=== PATIENT | male | born 1945 | race Caucasian/White ===

== ENCOUNTER 2020-02-01 08:13 | Outpatient (CLI) | payer MEDICARE, SELFPAY ==
--- NOTE | 2020-02-01 08:45 | XRR_ITS ---
PROCEDURE INFORMATION: Exam: XR Abdomen, 1 View Exam date and time: 02/01/2020 8:38 AM Age: 74 years old Clinical indication: Condition or disease; Kidney or ureter condition; Calculus (stone) in kidney; Additional info: Kidney stone TECHNIQUE: Imaging protocol: XR of the abdomen. Views: Frontal supine view of the abdomen. 1 View. COMPARISON: CR XR KUB [id number] 01/22/2019 7:36 AM FINDINGS: Gastrointestinal tract: No dilated gas-filled loops of bowel. Organs: No radiopaque renal or ureteral calculus identified. Vasculature: Multiple phleboliths in the pelvis. Bones/joints: Slight curvature of the lumbar spine convex to the right. Degenerative changes present in the lower lumbar spine. Soft tissues: Epicardial pacemaking wire fragment projects over the epigastrium. XR/XR KUB [id number] IMPRESSION: No radiopaque renal or ureteral calculus.
== END 2020-02-01 08:14 | disposition home or self-care (01) ==
LOC: RAD 08:18
PROVIDERS: PCP Family Medicine; Visit Provider Urology
DX: N20.0 Calculus of kidney (principal)
CPT/HCPCS: 74018; 81001

== ENCOUNTER → 2020-10-27 11:02 | Outpatient (BNVA) | payer MEDICARE, SELFPAY | PROVIDERS: PCP Family Medicine; Visit Provider Nurse Practitioner | DX: M12.262 Villonodular synovitis (pigmented), left knee (principal) | CPT/HCPCS: 73562 ==

== ENCOUNTER → 2020-11-08 10:56 | Outpatient (BNVA) | payer MEDICARE, SELFPAY | PROVIDERS: PCP Family Medicine; Visit Provider Family Medicine | DX: E78.00 Pure hypercholesterolemia, unspecified (principal); E78.5 Hyperlipidemia, unspecified; N40.0 Benign prostatic hyperplasia without lower urinary tract symptoms; R35.0 Frequency of micturition; N40.1 Benign prostatic hyperplasia with lower urinary tract symptoms; R39.12 Poor urinary stream; I10 Essential (primary) hypertension | CPT/HCPCS: 80053; 80061; 81000; 85025; G0103 ==

== ENCOUNTER 2021-03-13 08:47 | Outpatient (CLI) | payer MEDICARE, SELFPAY ==
[2021-03-13 09:01] VITALS: BMI 24.4
--- NOTE | 2021-03-13 09:08 | ECG_ITS ---
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 Interpretive Statements NAME OF STUDY: EXERCISE SESTAMIBI STRESS TEST INDICATION: Chest Pain, PROCEDURE: The baseline electrocardiogram showed [normal sinus rhythm with poor R wave progression. 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 Nonspecific ST-T changes in the high lateral leads.. At the baseline, the patient's blood pressure was 118/71 mm Hg with a heart rate of 99. The patient exercised for on a standard Douglas protocol. Patient attained a maximum heart rate of 141 beats per minute( 96 % of the maximum predicted heart rate) with a blood pressure at the peak exercise of 139/55 mm Hg. The EKG at the peak exercise revealed no significant changes. Patient did not have any chest pain or any significant arrhythmis with the exercise Sestamibi was injected 1 minute prior to the peak exercise During the recovery phase, there were no new changes. Blood pressure at the end of the recovery phase was 126/69 mm Hg with a heart rate of 92 per minute. CONCLUSION: 1. No significant EKG changes with the [treadmill exercise 2. No exercise-induced chest pain or cardiac arrhythmia 3. Slightly impaired exercise tolerance, attained a maximum of 7.0 METs 4. Sestamibi/Sestamibi perfusion results pending; see separate report. Electronically Signed On 03-22-2021 10:06:25 HOME SPECIALIST by Grecia Kearney M.D. [id number]
--- NOTE | 2021-03-13 09:08 | NMCV_ITS ---
NM kendra perf SPECT r/s* [id number] Manoj Ingram Age: 75 Gender: M : 1945 Exam Date: 03/13/2021 10:02 Ordering Phys: Grecia Kearney MD ([email or web address]) Technologist: FRIDA Garza Exam [facility]: [facility] Indications: SHORTNESS OF BREATH STRESS TEST Please see separate stress test report in [facility] for full findings IMAGE PROTOCOL Rest/Stress 1 Exercise Day Radiopharmaceutical Dose (mCi) Administration Site Administered by Rest: Tc-99m 11.0 IV FRIDA Alonso Sestamibi Stress:Tc-99m 32.4 IV FRIDA Alonso Sestamibi Rest: 13-Mar-2021 60 Discovery 630 Stress: 13-Mar-2021 30 Discovery 630 Radiopharmaceutical was injected at 96 % maximum heart rate. Supine position only as patient was unable to lay prone. SPECT RESULTS Technical Quality: Excellent Raw Data Analysis: Normal Image Corrections: No attenuation or motion correction applied Summed Stress Score: 24 Summed Rest Score: 20 Summed Difference Score: 4 PERFUSION FINDINGS Moderately large area of moderate to severely decreased tracer uptake in the mid and apical anterior, mid anterolateral, basal and mid anteroseptal, mid inferoseptal and the all the apical segments. Several areas of reversibility was noted in the mid anterolateral, basal anteroseptal and the LV apex. FUNCTIONAL RESULTS (calculated via Gated SPECT) Stress Image LV EF (%): 39 Stress EDV (mL):96 TID: 0.97 Stress ESV (mL):59 FUNCTIONAL FINDINGS: Segmental wall motion analysis revealing severe diffuse hypokinesia of the LV apex, anterior wall and septum. IMPRESSIONS 1. Metacarpal visually revealing areas of fixed defects in the distribution of the left anterior descending and circumflex artery with small areas of reversible defect in the anteroseptal, anterolateral and LV apex suggesting irene-infarction ischemia. 2. Wall motion abnormalities as mentioned above. 3. LV ejection fraction estimated to be 39%. 4. Mildly dilated LV cavity with an end-systolic volume of 59 ml No similar previous studies are available for comparison Dr Grecia Kearney MD [facility] (Electronically Signed) Final Date: 13 March 2021 18:45 S
[2021-03-13 11:55] VITALS: BP 126/69; PULSE 94
== END 2021-03-13 08:48 | disposition home or self-care (01) ==
PROVIDERS: PCP Family Medicine; Visit Provider Internal Medicine Cardiovascular Disease
DX: R07.89 Other chest pain (principal); R06.09 Other forms of dyspnea
CPT/HCPCS: 78452; 93017; A9500

== ENCOUNTER 2021-07-31 07:53 | Outpatient (CLI) | payer MEDICARE, SELFPAY ==
--- NOTE | 2021-07-31 08:15 | XR_ITS ---
WS: [id number] KUB, AP view, 07/31/2021 Clinical Data: urolithiasis Comparison: None. Findings: No abnormal intraabdominal masses or calcifications are seen. There is no dilatated small bowel or ev idence of obstruction. There is fecal material throughout the colon. There are phleboliths in the true pelvis. There are wir e fragments overlying the upper abdomen. There is a slight dextroscoliosis of the lumbar spine. XR/XR KUB [id number] Impression: Fecal material throughout colon.
== END 2021-07-31 07:54 | disposition home or self-care (01) ==
LOC: RAD 07:57
PROVIDERS: PCP Family Medicine; Visit Provider Urology
DX: N20.9 Urinary calculus, unspecified (principal)
CPT/HCPCS: 74018; 81003

== ENCOUNTER → 2021-08-09 09:36 | Outpatient (BNVA) | payer MEDICARE, SELFPAY | PROVIDERS: PCP Family Medicine; Visit Provider Internal Medicine Cardiovascular Disease | DX: R06.02 Shortness of breath (principal); I20.8 Other forms of angina pectoris; R07.9 Chest pain, unspecified; I25.118 Atherosclerotic heart disease of native coronary artery with other forms of angina pectoris; E78.00 Pure hypercholesterolemia, unspecified; I12.9 Hypertensive chronic kidney disease with stage 1 through stage 4 chronic kidney disease, or unspecified chronic kidney disease; I25.5 Ischemic cardiomyopathy; I50.33 Acute on chronic diastolic (congestive) heart failure; N18.30 Chronic kidney disease, stage 3 unspecified; N40.1 Benign prostatic hyperplasia with lower urinary tract symptoms; R06.00 Dyspnea, unspecified | CPT/HCPCS: 80048; 83880; 99214 ==

== ENCOUNTER 2021-10-03 12:19 | Outpatient (CLI) | payer MEDICARE, SELFPAY ==
--- NOTE | 2021-10-03 12:15 | USCV_ITS ---
Manoj Ingram Age: 76 Gender: M : 1945 Exam Date: 10/03/2021 12:36 Ordering Phys: Grecia Kearney MD ([email or web address]) Technologist: Exam Location: [facility] [place] Indication: cabg BP: 100 / 68 HR: 66 Rhythm: Sinus Technical Quality: Adequate MEASUREMENTS (Male / Female) Normal Values 2D ECHO LV Diastolic Diameter PLAX 4.3 cm 4.2 - 5.9 / 3.9 - 5.3 cm LV Systolic Diameter PLAX 3.1 cm IVS Diastolic Thickness 0.9 cm 0.6 - 1.0 / 0.6 - 0.9 cm IVS Systolic Thickness 0.9 cm LVPW Diastolic Thickness 1.0 cm 0.6 - 1.0 / 0.6 - 0.9 cm LVPW Systolic Thickness 1.1 cm LVOT Diameter 2.1 cm LV Ejection Fraction 2D Teich 54.8 % LA Diameter 3.4 cm Aorta at Sinotubular Diameter 2.9 cm IVC Diameter 1.1 cm M-MODE LV Diastolic Diameter MM 0.8 cm 4.2 - 5.9 / 3.9 - 5.3 cm LV Systolic Diameter MM 3.7 cm LV Ejection Fraction MM Teich -4812.4 % IVS Diastolic Thickness MM 0.0 cm 0.6 - 1.0 / 0.6 - 0.9 cm IVS Systolic Thickness MM 1.1 cm LVPW Diastolic Thickness MM 5.1 cm 0.6 - 1.0 / 0.6 - 0.9 cm LVPW Systolic Thickness MM 1.5 cm RV Diastolic Diameter MM 1.4 cm Aortic Annulus Diameter 3.1 cm LA Ao Ratio MM 1.2 MV E Point Septal Separation 1.1 cm DOPPLER AV Peak Velocity 109.0 cm/s LVOT Peak Velocity 132.0 cm/s AV Area Cont Eq vti 4.6 cm squared AV Area Cont Eq pk 4.2 cm squared MV Area PHT 4.9 cm squared Mitral E to A Ratio 0.7 MV E' Velocity 29.0 cm/s Mitral E to MV E' Ratio 7.8 Mitral E to LV E' Lateral Ratio 8.9 Mitral E to LV E' Septal Ratio 7.0 TR Peak Velocity 223.0 cm/s TR Peak Gradient 19.9 mmHg TV Peak E Velocity 78.0 cm/s Right Atrial Pressure 3.0 mmHg Pulmonary Artery Systolic Pressu 22.9 mmHg FINDINGS Left Ventricle Moderate hypokinesis of the mid and apical septum and anteroseptal segments. Diffuse hypokinesia of the LV apex. LV ejection fraction around 45 to 50%.Grade I/IV diastolic dysfunction (abnormal relaxation filling pattern), normal to mildly elevated filling pressures. Right Ventricle The right ventricle is normal in size and function. Right Atrium The right atrium is normal in size. Left Atrium The left atrium is normal in size. Mitral Valve No gross abnormalities noted Aortic Valve No gross abnormalities noted Tricuspid Valve Trace tricuspid valve regurgitation. Pulmonic Valve No gross abnormalities noted Pericardium Normal pericardium without effusion. Aorta Normal ascending aorta dimension. IVC The inferior vena cava pulmonary and hepatic veins appear normal. CONCLUSIONS Multiple wall motion normalities with additional ejection fraction of 45 to 50%. Type I diastolic dysfunction. Trace tricuspid valve regurgitation. Estimated pulmonary artery peak syst [id number] olic pressure of 23 mmHg. There is no pericardial effusion. There are no intracardiac masses. Compared to the study from 01/06/2019, there may not be a significant change Dr Grecia Kearney MD [facility] (Electronically Signed) Final Date: 04 Oct 2021 08:16 S
== END 2021-10-03 12:20 | disposition home or self-care (01) ==
PROVIDERS: PCP Family Medicine; Visit Provider Internal Medicine Cardiovascular Disease
DX: R06.00 Dyspnea, unspecified (principal); I07.1 Rheumatic tricuspid insufficiency
CPT/HCPCS: 93306

== ENCOUNTER → 2022-01-21 12:13 | Outpatient (BNVA) | payer MEDICARE, SELFPAY | PROVIDERS: PCP Family Medicine; Visit Provider Family Medicine | DX: I10 Essential (primary) hypertension (principal); E78.00 Pure hypercholesterolemia, unspecified; E78.5 Hyperlipidemia, unspecified | CPT/HCPCS: 80053; 80061; 85025 ==

== ENCOUNTER → 2022-11-25 15:26 | Outpatient (BNVA) | payer MEDICARE, SELFPAY | PROVIDERS: PCP Family Medicine; Visit Provider Internal Medicine Cardiovascular Disease | DX: I25.118 Atherosclerotic heart disease of native coronary artery with other forms of angina pectoris (principal); I95.9 Hypotension, unspecified; I25.5 Ischemic cardiomyopathy; E78.00 Pure hypercholesterolemia, unspecified; R06.00 Dyspnea, unspecified; I12.9 Hypertensive chronic kidney disease with stage 1 through stage 4 chronic kidney disease, or unspecified chronic kidney disease; N18.30 Chronic kidney disease, stage 3 unspecified | CPT/HCPCS: 99214 ==

== ENCOUNTER 2022-12-10 09:41 | Outpatient (CLI) | payer MEDICARE, SELFPAY ==
--- NOTE | 2022-12-10 10:15 | USCV_ITS ---
Manoj Ingram Age: 77 Gender: M : 1945 Exam Date: 12/10/2022 10:01 Ordering Phys: Grecia Kearney MD ([email or web address]) Technologist: Esha Hwang Exam Location[place] [facility] [place] Indication: CARDIOMYOPATHY BP: 100 / 64 HR: 87 Rhythm: Sinus Technical Quality: Adequate MEASUREMENTS (Male / Female) Normal Values 2D ECHO LV Diastolic Diameter PLAX 3.4 cm 4.2 - 5.9 / 3.9 - 5.3 cm LV Systolic Diameter PLAX 2.7 cm IVS Diastolic Thickness 0.9 cm 0.6 - 1.0 / 0.6 - 0.9 cm IVS Systolic Thickness 1.1 cm LVPW Diastolic Thickness 1.0 cm 0.6 - 1.0 / 0.6 - 0.9 cm LVPW Systolic Thickness 1.3 cm LVOT Diameter 2.1 cm LV Ejection Fraction 2D Teich 42.0 % LV Ejection Fraction MOD 2C 46.0 % LV Ejection Fraction 2C AL 47.8 % LA Diameter 3.1 cm LA Width 2.8 cm LA Height 4.5 cm RA Width 3.6 cm RA Height 4.5 cm Aorta at Sinotubular Diameter 3.2 cm IVC Diameter 1.4 cm M-MODE Aortic Annulus Diameter 4.2 cm LA Ao Ratio MM 0.7 MV E Point Septal Separation 0.7 cm DOPPLER AV Peak Velocity 76.0 cm/s LVOT Peak Velocity 73.0 cm/s AV Area Cont Eq vti 3.5 cm squared AV Area Cont Eq pk 3.3 cm squared MV Peak Velocity 70.0 cm/s MV Area PHT 3.8 cm squared Mitral E to A Ratio 0.6 MV E' Velocity 25.0 cm/s Mitral E to MV E' Ratio 6.6 Mitral E to LV E' Lateral Ratio 7.3 Mitral E to LV E' Septal Ratio 6.1 TR Peak Velocity 202.0 cm/s TR Peak Gradient 16.3 mmHg Right Atrial Pressure 5.0 mmHg Pulmonary Artery Systolic Pressu 21.3 mmHg PV Peak Velocity 151.0 cm/s RV Acceleration Time 0.1 s RV Ejection Time 0.2 s RV AcT/ET 0.3 FINDINGS Left Ventricle Somewhat dyskinetic mid and distal septum and anteroseptal segments. LV ejection fraction around 47%. Right Ventricle The right ventricle is normal in size and function. Right Atrium The right atrium is normal in size. Left Atrium The left atrium is normal in size. Mitral Valve No gross abnormalities noted Aortic Valve No gross abnormalities noted Tricuspid Valve Trace tricuspid valve regurgitation. Pulmonic Valve No gross abnormalities noted . Pericardium No pericardial effusion. Aorta Normal ascending aorta dimension. IVC The inferior vena cava appears normal. CONCLUSIONS Normal LV size with a diminished ejection fraction of 47%. Wall motion abnormalities as mentioned above. Trace of tricuspid valve regurgitation. Estimated pulmonary artery peak systolic pressure 21 mmHg There is no pericardial effusion. There are no intracardiac masses. Compared to the study from 10/03/2021, there may not be a significant change Dr Grecia Kearney MD FAC (Electronically Signed) Final Date: 12 December 2022 08:39 S
== END 2022-12-10 09:42 | disposition home or self-care (01) ==
LOC: RAD 09:46
PROVIDERS: PCP Family Medicine; Visit Provider Internal Medicine Cardiovascular Disease
DX: I42.9 Cardiomyopathy, unspecified (principal); I07.1 Rheumatic tricuspid insufficiency
CPT/HCPCS: 93306

== ENCOUNTER 2024-01-27 10:55 | Outpatient (CLI) | payer MEDICARE, SELFPAY ==
--- NOTE | 2024-01-27 11:01 | XRR_ITS ---
PROCEDURE INFORMATION: Exam: XR Right Knee Exam date and time: 01/27/2024 11:06 AM Age: 78 years old Clinical indication: Pain; Knee; Right; Additional info: Medial pain w squat/stand repeatedly TECHNIQUE: Imaging protocol: Radiologic exam of the right knee. Views: 3 views. COMPARISON: No relevant prior studies available. FINDINGS: Bones/joints: Chondrocalcinosis. Tricompartment narrowing and spurring, mild.. Soft tissues: Normal. XR/XR knee RT 3V* [id number] IMPRESSION: Mild degenerative changes.
== END 2024-01-27 10:56 | disposition home or self-care (01) ==
PROVIDERS: PCP Family Medicine; Visit Provider Family Medicine
DX: S83.249A Other tear of medial meniscus, current injury, unspecified knee, initial encounter (principal); M11.261 Other chondrocalcinosis, right knee; X58.XXXA Exposure to other specified factors, initial encounter; I10 Essential (primary) hypertension; I25.118 Atherosclerotic heart disease of native coronary artery with other forms of angina pectoris; E78.5 Hyperlipidemia, unspecified
CPT/HCPCS: 73562; 80053; 80061; 85025

== ENCOUNTER → 2024-05-17 11:28 | Outpatient (BNVA) | payer MEDICARE, SELFPAY | PROVIDERS: PCP Family Medicine; Visit Provider Internal Medicine Cardiovascular Disease | DX: R07.9 Chest pain, unspecified (principal); I21.3 ST elevation (STEMI) myocardial infarction of unspecified site; R94.31 Abnormal electrocardiogram [ECG] [EKG] | CPT/HCPCS: 93005; 99214 ==

== ENCOUNTER 2024-06-09 08:21 | Outpatient (CLI) | payer MEDICARE, SELFPAY ==
--- NOTE | 2024-06-09 08:30 | USCV_ITS ---
Manoj Ingram Age: 78 Gender: M : 1945 Exam Date: 06/09/2024 08:39 Ordering Phys: Grecia Kearney MD ([email or web address]) Technologist: CT Exam Location: [facility] [place] Indication: cad BP: 88 / 64 HR: 79 Rhythm: Atrial fibrillation Technical Quality: Adequate MEASUREMENTS (Male / Female) Normal Values 2D ECHO LVOT Diameter 2.1 cm LV Ejection Fraction MOD 4C 51.1 % LV Ejection Fraction MOD 2C 54.9 % LV Ejection Fraction 2C AL 55.1 % LA Diameter 3.3 cm RA Systolic Volume 4C AL 53.4 ml RA Systolic Volume 4C MOD 50.8 ml LA Sys Volume AL 45.2 cm cubed LA Sys Volume Index AL 22.1 cm cubed/m squared Aorta at Sinotubular Diameter 2.4 cm IVC Diameter 1.9 cm M-MODE LA Ao Ratio MM 1.2 AV Cusp Separation MM 2.1 cm DOPPLER AV Peak Velocity 97.0 cm/s LVOT Peak Velocity 101.0 cm/s AV Area Cont Eq vti 4.3 cm squared AV Area Cont Eq pk 3.7 cm squared MV Peak Velocity 81.0 cm/s MV Area PHT 3.5 cm squared TR Peak Velocity 171.0 cm/s TR Peak Gradient 11.7 mmHg TV Peak E Velocity 72.0 cm/s PV Peak Velocity 155.5 cm/s FINDINGS Left Ventricle Normal left ventricular size, systolic function and wall thickness, with no regional wall motion abnormalities. Left ventricular ejection fraction is estimated at 60 %. Grade I/IV diastolic dysfunction (abnormal relaxation filling pattern), normal to mildly elevated filling pressures. Right Ventricle The right ventricle is normal in size and function. Right Atrium The right atrium is normal in size. Left Atrium The left atrium is normal in size. Mitral Valve Structurally normal mitral valve without significant stenosis or prolapse. There is no mitral regurgitation. Aortic Valve Structurally normal aortic valve without significant sclerosis or stenosis. There is no aortic regurgitation. Tricuspid Valve Structurally normal tricuspid valve without significant stenosis or regurgitation. Pulmonary artery systolic pressure is normal. Pulmonic Valve Mild pulmonary valve regurgitation. Pericardium Normal pericardium without effusion. Aorta Normal ascending aorta dimension. IVC The inferior vena cava appears normal. CONCLUSIONS Normal left ventricular size, systolic function and wall thickness, with no regional wall motion abnormalities. Left ventricular ejection fraction is estimated at 60 %. Grade I/IV diastolic dysfunction (abnormal relaxation filling pattern), normal to mildly elevated filling pressures. Mild pulmonary valve regurgitation. There is no pericardial effusion. Right atrial pressure is around 5 mm of mercury. Uzma Palacio MD (Electronically Signed) Final Date: 09 June 2024 16:33 S
== END 2024-06-09 08:22 | disposition home or self-care (01) ==
LOC: RAD 08:22
PROVIDERS: PCP Family Medicine; Visit Provider Internal Medicine Cardiovascular Disease
DX: R06.09 Other forms of dyspnea (principal); R93.1 Abnormal findings on diagnostic imaging of heart and coronary circulation; I37.1 Nonrheumatic pulmonary valve insufficiency
CPT/HCPCS: 93306

== ENCOUNTER → 2024-08-17 09:18 | Outpatient (BNVA) | payer MEDICARE, SELFPAY | PROVIDERS: PCP Family Medicine; Referring Provider Family Medicine; Visit Provider Surgery | DX: K64.5 Perianal venous thrombosis (principal) | CPT/HCPCS: 99204 ==

== ENCOUNTER → 2024-09-01 09:05 | Outpatient (BNVA) | payer MEDICARE, SELFPAY | PROVIDERS: PCP Family Medicine; Visit Provider Surgery | DX: K64.5 Perianal venous thrombosis (principal) | CPT/HCPCS: 99213 ==

== ENCOUNTER → 2024-09-15 08:57 | Outpatient (BNVA) | payer MEDICARE, SELFPAY | PROVIDERS: PCP Family Medicine; Visit Provider Surgery | DX: K64.5 Perianal venous thrombosis (principal) | CPT/HCPCS: 99213 ==

== ENCOUNTER → 2024-11-16 10:22 | Outpatient (BNVA) | payer MEDICARE, SELFPAY | PROVIDERS: PCP Family Medicine; Visit Provider Nurse Practitioner Family | DX: I25.10 Atherosclerotic heart disease of native coronary artery without angina pectoris (principal); I95.9 Hypotension, unspecified; I42.9 Cardiomyopathy, unspecified; E78.00 Pure hypercholesterolemia, unspecified; R06.09 Other forms of dyspnea; I12.9 Hypertensive chronic kidney disease with stage 1 through stage 4 chronic kidney disease, or unspecified chronic kidney disease; N18.30 Chronic kidney disease, stage 3 unspecified; Z79.02 Long term (current) use of antithrombotics/antiplatelets; Z79.82 Long term (current) use of aspirin; Z95.5 Presence of coronary angioplasty implant and graft; I10 Essential (primary) hypertension; E78.5 Hyperlipidemia, unspecified | CPT/HCPCS: 36415; 80048; 83880; 85025; 99214 ==

== ENCOUNTER 2024-11-30 09:33 | Outpatient (CLI) | payer MEDICARE, SELFPAY ==
--- NOTE | 2024-11-30 | ECG_ITS ---
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 The perfusion scan will be documented separately. DATA: Baseline heart rate was 88 beats per minute. Baseline blood pressure was 107/77 millimeters of mercury. Target heart rate was 142. Maximum heart rate achieved was 116. which was 81% of the predicted target heart rate. Maximum blood pressure was 120/79 millimeters of mercury. The reason for ending the test was completion of the protocol. The patient did not experience any symptoms. ELECTROCARDIOGRAM: BASELINE: Sinus rhythm. Normal axis. Possible old anterior wall myocardial infarction or poor R wave progression due to lead placement, otherwise, no ST-T changes suggestive of ischemia noted. No arrhythmia noted. After Lexiscan injection: No ST-T changes suggestive of ischemic noted. No arrhythmia noted. CONCLUSION: Please note due to baseline abnormality of the EKG specificity and sensitivity of the EKG portion of LexiScan MIBI stress test will be low 1. EKG not suggestive of ischemia 2. Lexiscan injection unremarkable. 3. Perfusion scan will be documented separately. Electronically Signed On 12-15-2024 19:23:16 CDT by GILBERT DELONG [email or web address] [id number]
--- NOTE | 2024-11-30 09:52 | NMCV_ITS ---
NM kendra perf SPECT r/s* [id number] Manoj Ingram Age: 79 Gender: M : 1945 Exam Date: 11/30/2024 10:28 Ordering Phys: Sweta Prescott NP Technologist: FRIDA Ozuna Exam Location: [facility] Indications: cp STRESS TEST Please [facility] IMAGE PROTOCOL Rest/Stress 1 Lexiscan Day Radiopharmaceutical Dose (mCi) Administration Site Administered by Rest: Tc-99m 11 IV FRIDA Alonso Sestamibi Stress:Tc-99m 32.4 IV FRIDA Alonso Sestamibi Rest: 30-Nov-2024 60 Discovery 630 Stress: 30-Nov-2024 30 Discovery 630 0.4mg Lexiscan. Images obtained in supine and prone position. SPECT RESULTS Technical Quality: Good Raw Data Analysis: Normal Image Corrections: No attenuation or motion correction applied Summed Stress Score: 24 Summed Rest Score: 24 Summed Difference Score: 2 PERFUSION FINDINGS Large area of fixed perfusion defect noted in mid to distal anterior and basal to distal anteroseptal wall suggestive of old myocardial infarction versus scarring. Medium sized area of fixed perfusion defect noted in basal to mid inferior inferoseptal wall suggestive of old myocardial infarction versus scarring. FUNCTIONAL RESULTS (calculated via Gated SPECT) Stress Image LV EF (%): 32 Stress EDV (mL):116 TID: 0.95 Stress ESV (mL):79 FUNCTIONAL FINDINGS: Mid to distal anterior and anteroseptal wall akinesis. IMPRESSIONS Large area of old myocardial infarction versus scarring noted in mid to distal anterior and in basal to distal anteroseptal wall suggestive of old myocardial infarction without significant ischemia in LAD territory. Since there is no wall motion abnormality basal to mid inferior inferoseptal wall old myocardial infarction could be an artifact however cannot rule out multivessel coronary artery disease but there is no obvious ischemia. Uzma Palacio MD (Electronically Signed) Final Date: 01 December 2024 17:08 S
[2024-11-30 09:53] VITALS: BMI 24.1
[2024-11-30 11:25] VITALS: BP 111/68; PULSE 103
== END 2024-11-30 09:34 | disposition home or self-care (01) ==
LOC: CDL 09:34
PROVIDERS: PCP Family Medicine; Visit Provider Nurse Practitioner Family
DX: R06.02 Shortness of breath (principal); R93.1 Abnormal findings on diagnostic imaging of heart and coronary circulation
CPT/HCPCS: 36415; 78452; 93017; 96374; A9500; J2785

== ENCOUNTER 2024-12-01 12:28 | Outpatient (CLI) | payer MEDICARE, SELFPAY ==
--- NOTE | 2024-12-01 12:45 | USCV_ITS ---
Juan JoseManoj Age: 79 Gender: M : 1945 Exam Date: 12/01/2024 12:48 Ordering Phys: Sweta Prescott NP Technologist: SADIA [place] [facility] [place]: SoB BP: 100 / 70 HR: Rhythm: Sinus Technical Quality: Adequate MEASUREMENTS (Male / Female) Normal Values 2D ECHO LV Diastolic Diameter PLAX 4.8 cm 4.2 - 5.9 / 3.9 - 5.3 cm IVS Diastolic Thickness 0.8 cm 0.6 - 1.0 / 0.6 - 0.9 cm IVS Systolic Thickness 0.9 cm LVPW Diastolic Thickness 1.4 cm 0.6 - 1.0 / 0.6 - 0.9 cm LVPW Systolic Thickness 1.6 cm LVOT Diameter 2.1 cm LV Ejection Fraction 2D Teich 20.9 % LV Ejection Fraction MOD 4C 59.7 % LV Ejection Fraction MOD 2C 59.7 % LV Ejection Fraction 2C AL 60.7 % LA Diameter 3.4 cm RA Systolic Volume 4C AL 37.2 ml RA Systolic Volume 4C MOD 34.1 ml LA Sys Volume AL 31.5 cm cubed LA Sys Volume Index AL 15.5 cm cubed/m squared Aorta at Sinotubular Diameter 2.7 cm IVC Diameter 1.8 cm M-MODE LA Ao Ratio MM 0.9 AV Cusp Separation MM 1.6 cm FINDINGS Left Ventricle Normal left ventricular size. Paradoxical septal motion. Globally normal left ventricular ejection fraction of 60%. Normal left ventricular wall thickness. Right Ventricle Normal right ventricular size and systolic function. Right Atrium Normal right atrial size Left Atrium Normal left atrial size Mitral Valve Aortic Valve Normal opening of the aortic valve Tricuspid Valve Pulmonic Valve Pericardium No pericardial effusion Aorta Normal aortic root size. IVC Normal size of the IVC. CONCLUSIONS 1. This study was ordered as a limited echocardiogram. 2. Normal right ventricular size and systolic function 3. Normal left ventricular systolic function, EF 60% Cj Abarca (Electronically Signed) Final Date: 03 December 2024 14:13 S
== END 2024-12-01 12:29 | disposition home or self-care (01) ==
LOC: RAD 12:29
PROVIDERS: PCP Family Medicine; Visit Provider Nurse Practitioner Family
DX: I25.5 Ischemic cardiomyopathy (principal)
CPT/HCPCS: 93308

== ENCOUNTER 2025-03-01 08:35 | Outpatient (CLI) | payer MEDICARE, SELFPAY ==
--- NOTE | 2025-03-01 08:47 | XRR_ITS ---
PROCEDURE INFORMATION: Exam: XR Left Knee Exam date and time: 03/01/2025 8:56 AM Age: 79 years old Clinical indication: Knee; Left; Pain while putting pressure on lt leg x few months. ; Additional info: Left knee pain TECHNIQUE: Imaging protocol: Radiologic exam of the left knee. Views: 3 views. COMPARISON: CR XR knee LT 3V* [id number] 10/27/2020 11:09 AM FINDINGS: Bones/joints: There is a moderate loss of joint space seen in the 3 compartments of the left knee, most notably within the medial compartment. Soft tissues: Normal. Other findings: Calcifications are seen within the menisci similar to that seen on 10/27/2020. XR/XR knee LT 3V* [id number] IMPRESSION: 1. There are no acute osseous findings. 2. 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 This finding is similar to that present on 10/27/2020. 3. Chondrocalcinosis of the menisci
== END 2025-03-01 08:36 | disposition home or self-care (01) ==
LOC: RAD 08:41
PROVIDERS: PCP Family Medicine; Visit Provider Family Medicine
DX: M17.12 Unilateral primary osteoarthritis, left knee (principal); M11.262 Other chondrocalcinosis, left knee
CPT/HCPCS: 73562

== ENCOUNTER 2025-03-04 02:25 | Emergency (ER) | payer MEDICARE, SELFPAY ==
[2025-03-04 02:38] VITALS: BP 122/75; PULSE 113; RESP 18; TEMP 36.5; O2SAT 97; BMI 23.0
[2025-03-04 03:37] LABS: Hematocrit 49.0 % (37-53); Hemoglobin 16.60 g/dL (11.27-16.99); Mean Corpuscular HGB Conc 33.9 g/dL (30-55); Mean Corpuscular Hemoglobin 31.8 pg (27-33); Mean Corpuscular Volume 93.9 fl (82-101); Nucleated Red Blood Cells % 0 %; Platelet Count 270 10^3/cmm (157-399); Red Blood Count 5.22 10^6/uL (3.85-5.65); White Blood Count 16.41 10^3/uL (3.29-11.43)
[2025-03-04 03:56] LABS: Alanine Aminotransferase 17 U/L (0-41); Albumin Level 4.5 g/dL (3.5-5.2); Alkaline Phosphatase 92 U/L (40-130); Anion Gap 19.6 (5-19); Aspartate Amino Transferase 21 U/L (0-40); Blood Urea Nitrogen 16 mg/dL (8-23); Calcium 10.1 mg/dL (8.5-10.5); Carbon Dioxide 24 mmol/L (22-29); Chloride 98 mmol/L (98-107); Creatinine Clr Calc Pharmacy 37.0299; Globulin 4.0 g/dL (1.3-4.6); Glucose 148 mg/dL (65-115); Lipase 36 U/L (13-60); Osmolality Calculated 288 mOsm/kg (285-295); Potassium 4.6 mmol/L (3.5-5.1); Sodium 137 mmol/L (136-145); Total Protein 8.5 g/dL (6.6-8.7)
--- NOTE | 2025-03-04 04:11 | ECG_ITS ---
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 Measurements Intervals [place] Rate: 101 P: 58 SD: 168 QRS: 40 QRSD: 113 T: 88 QT: 371 QTc: 482 Interpretive Statements SINUS TACHYCARDIA INCOMPLETE RIGHT BUNDLE BRANCH BLOCK [90+ ms QRS DURATION, TERMINAL R IN V1/V2, 40+ ms S IN I/aVL/V4/V5/V6] SEPTAL MYOCARDIAL INFARCTION , OF INDETERMINATE AGE [40+ ms Q WAVE IN V1/V2] Compared to ECG 05/17/2024 11:36:58 Incomplete right bundle-branch block now present Sinus rhythm no longer present T-wave abnormality no longer present Possible ischemia no longer present Myocardial infarct finding still present Electronically Signed On 03-04-2025 15:23:49 CDT by Grecia Kearney M.D. [email or web address]
--- NOTE | 2025-03-04 04:12 | W.ED.GENADLT ---
HPI - General Adult General: Chief complaint: Nausea/Vomiting/Diarrhea Stated complaint: n/d flashes abd pain believes food poisoning Time Seen by Provider: 03/04/25 03:24 History of Present Illness: Patient is a 79-year-old male with a history of CAD s/p cardiac stenting, high cholesterol, presents with a chief complaint of upper abdominal pain that started around 1:00 this afternoon after he ate stew couple of hours before. Pain is nonexertional and does not radiate to neck, arm, back. He states it has not been associated with a fever, cough, chest pain, hemoptysis and shortness of breath. No syncope or lightheadedness. He denies any lower extremity swelling. Patient states that he has had several episodes of watery diarrhea. He denies any dysuria or hematuria. He has a history of hernia repair but denies history of appendectomy or cholecystectomy. Related Data Home Medications ?Medication ?Instructions ?Recorded ?Confirmed [id number] tab PO 08/26/19 11/16/24 750 mg-100 mg-125 mg-1.65 mg tablet (Glucosamine Chondroit Complx Advan) multivitamin 1 tab PO DAILY 08/26/19 11/16/24 Previous Rx's ?Medication ?Instructions ?Recorded aspirin 81 mg tablet,delayed 81 mg PO DAILY #100 tabs 01/08/22 release (Adult Aspirin Regimen) magnesium 200 mg tablet 400 mg (2 x 200 mg) PO DAILY #180 01/08/22 tabs nitroglycerin 0.4 mg sublingual 0.4 mg sublingual Q5M PRN chest 01/10/22 tablet (Nitrostat) pain #25 tabs clopidogrel 75 mg tablet See Rx Instructions .Route 07/13/24 .COMPLEX #90 tabs polyethylene glycol 3350 17 4 g PO DAILY 2 weeks #238 grams 08/17/24 gram/dose oral powder (Miralax) citalopram 20 mg tablet See Rx Instructions .Route 09/21/24 .COMPLEX #60 tabs rosuvastatin 10 mg tablet 10 mg PO DAILY #90 tabs 01/11/25 hyoscyamine sulfate 0.125 mg 0.125 mg PO Q6H PRN abdominal 03/04/25 sublingual tablet discomfort #30 tabs ondansetron HCl 4 mg tablet 4 mg PO Q6H PRN nausea and 03/04/25 vomiting 3 days #12 tabs Allergies Allergy/AdvReac Type Severity Reaction Status Date / Time ibuprofen Allergy Unknown Verified 03/04/25 02:41 PFSH ED PFSH: Medical History (Updated 03/04/25 @ 05:38 by Koki Thomas MD) Lumbar degenerative disc disease BPH loc w urin obs/LUTS Renal insufficiency Osteoarthritis of shoulders, bilateral Urolithiasis Atherosclerotic heart disease of [place] coronary artery with other forms of angina pectoris Hypercholesterolemia Essential hypertension Cardiomyopathy Exertional angina Dyslipidemia Surgical History Status post extracorporeal shock wave therapy left ureteral stone Hx of tonsillectomy Hx of hernia repair Hx of heart artery stent Hx of lithotripsy Family History Brother CAD (coronary artery disease) Family history of premature coronary artery disease Sister CAD (coronary artery disease) Father Cancer Denies family history of Diabetes Clotting disorder Dementia Hyperlipidemia Psychiatric illness Chronic kidney disease (CKD) Suicide Anesthesia complication Bleeding disorder Lung disease Hypertension Stroke Social History Smoking and tobacco/nicotine status: never used tobacco/nicotine Alcohol intake: never Substance/Drug Use: never Adopted: No Caregiver/support person: No Lives independently: No Household members: spouse Marital status: Current occupational status: retired Physical Exam Narrative: EXAM NARRATIVE: Vital signs were reviewed. Patient is alert and oriented. Patient is breathing comfortably, no increased WOB or accessory muscle use. SpO2 is above 95% on RA. Patient has clear lungs b/l, no rhonchi, wheezing or crackles. No hypotension. +Mild tachycardia. Abdomen is soft, nondistended and nontender. Patient is moving all extremities, no deformity or gross injury. No lower extremity edema or asymmetry. Course Vital Signs: Vital signs: Vital Signs Temperature 97.7 F 03/04/25 02:38 Pulse Rate 113 H 03/04/25 02:38 Respiratory Rate 18 03/04/25 02:38 Blood Pressure 122/75 03/04/25 02:38 Pulse Oximetry 97 03/04/25 02:38 MDM - General Adult Medical Decision Making 79-year-old male presenting with a chief complaint of upper abdomen pain, nausea, diarrhea that started around 1:00 this afternoon, a couple hours after he ate some stew. Differential diagnose includes but is not limited to, viral upper respiratory infection, pneumonia, gastroenteritis, food poisoning, pancreatitis, cholecystitis, bowel obstruction, ACS, other. On exam, patient is normotensive but is mildly tachycardic. Abdominal exam is benign, he does not have a distended abdomen, no significant tenderness. Specifically, no pain with palpation over the McBurney's point and negative Nassar sign. No pain with percussion of the flanks. Patient was evaluate CBC, CMP, lipase, troponin, UA, EKG. He was treated IV fluids, IV Zofran and p.o. Tylenol. Patient has a mildly elevated white blood cell count but is not anemic. He has an elevated creatinine but relatively normal anion gap and this is comparable to previous, suspect chronic CKD. Otherwise, he has normal liver function, normal initial troponin, UA does not show evidence of infection. On reassessment, patient is feeling better. He still feeling mildly nauseated, was given additional dose of Zofran before discharge. At this time, I feel that ACS is unlikely given that he is not experiencing chest pain, has a stable EKG, has a normal baseline troponin, pain is not exertional and symptoms are associated with diarrhea. Patient feels well enough to go home. Patient was counseled on supportive care at home, given return precautions and discharged in stable condition with recommendation for outpatient follow-up with primary care nurse or doctor. Lab Data 03/04/25 03:30 03/04/25 03:30 Laboratory Results WBC 16.41 10^3/uL (3.29-11.43) H 03/04/25 03:30 RBC 5.22 10^6/uL (3.85-5.65) 03/04/25 03:30 Hgb 16.60 g/dL (11.27-16.99) 03/04/25 03:30 Hct 49.0 % (37-53) 03/04/25 03:30 MCV 93.9 fl (82-101) 03/04/25 03:30 MCH 31.8 pg (27-33) 03/04/25 03:30 MCHC 33.9 g/dL (30-55) 03/04/25 03:30 RDW 12.6 % (12.1-15.1) 03/04/25 03:30 Plt Count 270 10^3/cmm (157-399) 03/04/25 03:30 MPV 10.0 fL (7.4-10.4) 03/04/25 03:30 Neut % (Auto) 85.5 % 03/04/25 03:30 Lymph % (Auto) 7.6 % 03/04/25 03:30 Trinity % (Auto) 5.7 % 03/04/25 03:30 Eos % (Auto) 0.4 % 03/04/25 03:30 Baso % (Auto) 0.4 % 03/04/25 03:30 Neut # (Auto) 14.04 10^3/uL (1.8-7.7) H 03/04/25 03:30 Lymph # (Auto) 1.3 10^3/uL (0.8-4.8) 03/04/25 03:30 Trinity # (Auto) 0.9 10^3/uL (0.2-0.9) 03/04/25 03:30 Eos # (Auto) 0.1 10^3/uL (0.0-0.8) 03/04/25 03:30 Baso # (Auto) 0.1 10^3/uL (0.0-0.1) 03/04/25 03:30 Nucleated RBC % (auto) 0 % 03/04/25 03:30 Nucleated RBCs # 0.0 /100WBC 03/04/25 03:30 Sodium 137 mmol/L (136-145) 03/04/25 03:30 Potassium 4.6 mmol/L (3.5-5.1) 03/04/25 03:30 Chloride 98 mmol/L (98-107) 03/04/25 03:30 Carbon Dioxide 24 mmol/L (22-29) 03/04/25 03:30 Anion Gap 19.6 (5-19) H 03/04/25 03:30 BUN 16 mg/dL (8-23) 03/04/25 03:30 Creatinine 1.8 mg/dL (0.7-1.2) H 03/04/25 03:30 GFR Calculation Not Reportable 03/04/25 03:30 Glucose 148 mg/dL (65-115) H 03/04/25 03:30 Calculated Osmolality 288 mOsm/kg (285-295) 03/04/25 03:30 Calcium 10.1 mg/dL (8.5-10.5) 03/04/25 03:30 Total Bilirubin 1.1 mg/dL (0.15-1.2) 03/04/25 03:30 AST 21 U/L (0-40) 03/04/25 03:30 ALT 17 U/L (0-41) 03/04/25 03:30 Alkaline Phosphatase 92 U/L (40-130) 03/04/25 03:30 Troponin T Baseline 13 ng/L (0-15) 03/04/25 03:30 Total Protein 8.5 g/dL (6.6-8.7) 03/04/25 03:30 Albumin 4.5 g/dL (3.5-5.2) 03/04/25 03:30 Globulin 4.0 g/dL (1.3-4.6) 03/04/25 03:30 Lipase 36 U/L (13-60) 03/04/25 03:30 All radiology interpretation(s) finalized by discharge EKG Data EKG 1: Interpretation: Sinus tachycardia with a heart rate of 101, normal axis, mild QRS widening, normal QTc, no STEMI. Patient has incomplete right bundle morphology. He has R wave progression that is abnormal in comparison to prior. Will repeat EKG w/proper lead placement. EKG 2: Interpretation: Normal sinus rhythm, heart rate of 90, normal axis, normal interval, no ST segment elevation. EKG is comparable to previous. Discharge Plan Discharge Patient Disposition: Home Clinical Impression: Gastroenteritis Condition: Stable Prescriptions: New ondansetron HCl 4 mg tablet 4 mg PO Q6H PRN (Reason: nausea and vomiting) 3 Days Qty: 12 0RF hyoscyamine sulfate 0.125 mg tablet, sublingual 0.125 mg PO Q6H PRN (Reason: abdominal discomfort) Qty: 30 0RF No Action Glucos Chond Cplx Advanced 750 mg-100 mg- 125 mg-1.65 mg tablet PO multivitamin Tablet 1 tab PO DAILY polyethylene glycol 3350 [Miralax] 17 gram/dose powder 4 g PO DAILY 14 Days Qty: 238 0RF aspirin [Adult Aspirin Regimen] 81 mg tablet,delayed release (DR/EC) 81 mg PO DAILY Qty: 100 3RF magnesium 200 mg tablet 400 mg PO DAILY Qty: 180 3RF nitroglycerin [Nitrostat] 0.4 mg tablet, sublingual 0.4 mg SUBLINGUAL Q5M PRN (Reason: chest pain) Qty: 25 3RF clopidogrel 75 mg tablet See Rx Instructions .ROUTE .COMPLEX Qty: 90 3RF Dose Instruction: Take 1 tablet by mouth once daily Rx Instructions: Take 1 tablet by mouth once daily citalopram 20 mg tablet See Rx Instructions .ROUTE .COMPLEX Qty: 60 2RF Dose Instruction: TAKE 1 TABLET BY MOUTH ONCE DAILY . APPOINTMENT REQUIRED FOR FUTURE REFILLS Rx Instructions: TAKE 1 TABLET BY MOUTH ONCE DAILY . APPOINTMENT REQUIRED FOR FUTURE REFILLS rosuvastatin 10 mg tablet 10 mg PO DAILY Qty: 90 1RF Discharge Orders: Discharge ED (Routine); Ordered 03/04/25 Ordered By: Koki Thomas Referrals: Floresita Hilton MD [Primary Care Provider, Family Practice] Patient Instructions: Opioid Safety, Pain Management, Patient Portal & Sil[place]re Instructions, Gastroenteritis (ED) Activity Restrictions/Additional Instructions: You may take 500 mg to 1000 mg every 6-8 hours for pain. You may also try hyoscyamine for abdominal cramping. For nausea, take Zofran. Continue to hydrate with fluids at home such as Pedialyte, low sugar Gatorade and broth. Continue to monitor your condition closely. If any new or concerning symptoms arise, please return immediately to the emergency department. Specifically, continue to keep an eye out for fever, chest pain, pain that worsens with exertion, severe nausea and vomiting or inability to keep any food or drink down, increasing or worsening abdominal pain, inability to pass stool or gas. Please see your primary care physician by Friday if possible. Print Language: Citizen [place] Coding Level of Care Code ED Kosher Inspector for Karen Patel
[2025-03-04] MEDS: ondansetron 2 mg/ML SDV 2 mL 4 MG IVP (04:24)
[2025-03-04 04:37] LABS: Troponin(5th) Baseline 13 ng/L (0-15)
[2025-03-04 04:56] LABS: Glucose Urine UA Negative (Normal); Nitrate Urine Negative (Negative)
[2025-03-04 05:01] VITALS: BP 116/84; PULSE 90; RESP 16; O2SAT 98
[2025-03-04 05:01] LABS: Add Urine Microscopic? YES
[2025-03-04 05:04] LABS: Specific Gravity, Urine 1.031 (1.005-1.030)
[2025-03-04 05:47] LABS: Troponin 5 2HR 13.13 ng/L (0-15); Troponin 5 2HR Delta 0.13 ABS# (0-10)
[2025-03-04 06:03] VITALS: BP 122/75; PULSE 92; RESP 16; O2SAT 98
--- NOTE | 2025-03-04 06:11 | ECG_ITS ---
[facility] Pat Name: Manoj Ingram Department: Room: Gender: Male [employer]: : 1945 Requested By: Koik Thomas Order Number: [id number] Caty MD: Grecia Kearney M.D. Measurements Intervals [place] Rate: 90 P: 66 CT: 206 QRS: 47 QRSD: 103 T: 89 QT: 377 QTc: 464 Interpretive Statements SINUS RHYTHM SEPTAL MYOCARDIAL INFARCTION , OF INDETERMINATE AGE [40+ ms Q WAVE IN V1/V2] Compared to ECG 01/07/2019 09:09:42 No significant changes Electronically Signed On 03-04-2025 15:30:49 CDT by Grecia Kearney M.D. [email or web address]
== END 2025-03-04 06:12 | disposition home or self-care (01) ==
PROVIDERS: Emergency Provider Emergency Medicine; PCP Family Medicine
DX: K52.9 Noninfective gastroenteritis and colitis, unspecified (principal); Z79.82 Long term (current) use of aspirin; Z79.02 Long term (current) use of antithrombotics/antiplatelets; E78.5 Hyperlipidemia, unspecified; I25.118 Atherosclerotic heart disease of native coronary artery with other forms of angina pectoris; I10 Essential (primary) hypertension
CPT/HCPCS: 36415; 80053; 81001; 83690; 84484; 85025; 93005; 96361; 96374; 99284; J2405; J7120; J9999